=== PATIENT | male | born 1995 | race Caucasian/White ===

== ENCOUNTER 2020-11-03 17:59 | Inpatient (IN) ==
[2020-11-03] MEDS ORDERED: Ziprasidone 10 MG in Water for inj. (sterile) 0.5 ML IM ONE ×2 (18:26→21:49)
[2020-11-03 18:53] LABS: Basophils % 0.3 %; Eosinophils # 0.1 K/mcL (0.0-0.6); Eosinophils % 0.8 %; Hematocrit 39.4 % (37.5-50.1); Hemoglobin 13.6 g/dL (12.9-16.9); Immature Granulocytes % 0.3 % (0-4); Lymphocytes % 33.3 %; Mean Corpuscular HGB Conc 34.5 g/dL (31.6-35.5); Mean Corpuscular Hemoglobin 28.5 pg (28.0-33.3); Mean Corpuscular Volume 82.6 fL (83.0-100.0); Mean Platelet Volume 9.3 fL (9.4-12.4); Monocytes # 0.4 K/mcL (0.0-1.3); Monocytes % 6.3 %; Neutrophils # 3.5 K/mcL (1.6-8.9); Platelet Count 183 K/mcL (140-400); Red Blood Count 4.77 M/mcL (4.19-5.50); Red Cell Distribution Width 12.8 % (11.5-14.5)
[2020-11-03] MEDS ORDERED: Naloxone 0.4 MG/ML INJ IVP ONE ×2 (18:54→21:02)
[2020-11-03 19:07] LABS: Acetaminophen < 10 mcg/mL (10-20); BUN/Creatinine Ratio 12 (6-26); Blood Urea Nitrogen 17 mg/dL (6-20); Calcium 9.1 mg/dL (8.6-10.3); Carbon Dioxide 25 mEq/L (23-29); Chloride 104 mEq/L (98-107); Ethanol < 10 mg/dL (Less than 10); Glucose 174 mg/dL (70-105); Osmolality,Calculated 292 (280-300); Potassium 3.5 mEq/L (3.5-5.1); Salicylate < 2.5 mg/dL (15.0-30.0); Sodium 138 mEq/L (136-145); eGFR For African Americans > 60 (> 60); eGFR For Non-African Americans 58 (> 60)
[2020-11-03 19:20] LABS: Amorphous Sediment,Urine Few per hpf (None-Few); Bacteria,Urine Few per hpf (None-Few); Bilirubin,Urine Negative (Negative); Blood,Urine Negative (Negative); Clarity,Urine Turbid (Clear); Color,Urine Yellow (Yellow); Glucose,Urine (UA) Normal (Normal); Ketones,Urine Negative (Negative); Leukocyte Esterase,Urine Negative (Negative); Mucus,Urine Few per lpf (None-Few); Nitrite,Urine Negative (Negative); Protein,Urine 50 mg/dL (Neg-Trace); RBC,Urine 0-3 per hpf (0-3); Specific Gravity,Urine 1.012 (1.010-1.025); Sperm,Urine Present (None Seen); Urobilinogen,Urine Normal (Normal); WBC,Urine 0-3 per hpf (0-3)
[2020-11-03] MEDS ORDERED: 0.9 % Sodium Chloride 1,000 ML IVC ONE (19:20)
[2020-11-03 19:31] LABS: Amphetamine Screen,Urine Positive ng/mL (Cutoff=1000); Barbiturate Screen,Urine Negative ng/mL (Cutoff=200); Benzodiazepines Screen,Urine Positive ng/mL (Cutoff=200); Cannabinoid Screen,Urine Positive ng/mL (Cutoff = 50); Cocaine Screen,Urine Negative ng/mL (Cutoff= 300); Opiate Screen,Urine Negative ng/mL (Cutoff=300); Phencyclidine Screen,Urine Negative ng/mL (Cutoff=25)
[2020-11-03 19:36] LABS: Creatine Kinase 186 Units/L (30-223)
[2020-11-03] MEDS ORDERED: Naloxone 0.4 MG/ML INJ ONE (21:04)
[2020-11-03] MEDS ORDERED: NALOXONE IVC SCH (21:30)
[2020-11-03] MEDS ORDERED: SODIUM CHLORIDE 0.9% IVC SCH (21:30)
[2020-11-03] MEDS ORDERED: Naloxone 0.4 MG/ML INJ IVP PRN (21:40)
[2020-11-03] MEDS ORDERED: Ondansetron 4 MG/2 ML VIAL IVP PRN (21:40)
[2020-11-03] MEDS ORDERED: 0.9 % Sodium Chloride 1,000 ML IVC SCH (21:45)
[2020-11-03] MEDS: 0.9 % Sodium Chloride 1,000 ML IVC SCH (23:18)
[2020-11-04 06:28] LABS: Hematocrit 41.4 % (37.5-50.1); Hemoglobin 13.9 g/dL (12.9-16.9); Mean Corpuscular HGB Conc 33.6 g/dL (31.6-35.5); Mean Corpuscular Hemoglobin 28.9 pg (28.0-33.3); Mean Corpuscular Volume 86.1 fL (83.0-100.0); Mean Platelet Volume 9.6 fL (9.4-12.4); Platelet Count 176 K/mcL (140-400); Red Blood Count 4.81 M/mcL (4.19-5.50); Red Cell Distribution Width 13.1 % (11.5-14.5)
[2020-11-04 06:46] LABS: BUN/Creatinine Ratio 15 (6-26); Blood Urea Nitrogen 15 mg/dL (6-20); Calcium 8.6 mg/dL (8.6-10.3); Carbon Dioxide 26 mEq/L (23-29); Chloride 106 mEq/L (98-107); Glucose 84 mg/dL (70-105); Magnesium 2.1 mg/dL (1.6-2.6); Osmolality,Calculated 286 (280-300); Phosphorous 3.1 mg/dL (2.7-4.5); Potassium 3.8 mEq/L (3.5-5.1); Sodium 138 mEq/L (136-145); eGFR For African Americans > 60 (> 60); eGFR For Non-African Americans > 60 (> 60)
[2020-11-04] MEDS ORDERED: SODIUM CHLORIDE 0.9% IVC SCH (07:28)
[2020-11-04] MEDS ORDERED: Naloxone 0.4 MG/ML INJ IVP PRN (07:28)
[2020-11-04] MEDS ORDERED: Ondansetron 4 MG/2 ML VIAL IVP PRN (07:28)
[2020-11-04] MEDS ORDERED: NALOXONE IVC SCH (07:28)
[2020-11-04] MEDS ORDERED: Dexmedetomidine HCl 400 MCG/100 ML MLS IVC SCH (07:28)
[2020-11-04] MEDS ORDERED: 0.9 % Sodium Chloride 1,000 ML IVC SCH (07:28)
[2020-11-04] MEDS: *HR* Enoxaparin 40 MG/0.4 ML SYRINGE SQ SCH ×2 (09:23→19:21)
[2020-11-04] MEDS: 0.9 % Sodium Chloride 1,000 ML IVC SCH (10:44)
[2020-11-04] MEDS ORDERED: *HR* LORazepam 2 MG/ML VIAL IVP ONE (12:21)
[2020-11-04] MEDS ORDERED: *HR* Enoxaparin 40 MG/0.4 ML SYRINGE SQ ONE (21:43)
[2020-11-05] MEDS: *HR* LORazepam 2 MG/ML VIAL IVP PRN ×3 (04:48→17:46)
[2020-11-06] MEDS: *HR* LORazepam 2 MG/ML VIAL IVP PRN ×2 (00:23→09:01)
[2020-11-06] MEDS: *HR* Enoxaparin 40 MG/0.4 ML SYRINGE SQ SCH (05:59)
[2020-11-06 07:32] VITALS: BP 131/68
== END 2020-11-06 10:09 | DRG 817 ==
LOC: EMEROOARM 17:59 → ICNU 17:59 → SUATTDRO 22:01 → ICNU 22:29 → 3BNU 11-04 10:36
PROVIDERS: ADMIT Student in an Organized Health Care Education/Training Program; ATTEND Registered Nurse